=== PATIENT | female | born 1990 | race Hispanic/Latino ===

== ENCOUNTER 2017-06-26 19:16 | Day surgery (SDC) | payer MEDICAID ==
[2017-06-26] MEDS ORDERED: Metoclopramide HCl 10 MG/2 ML VIAL IVP PRN (20:20)
[2017-06-26] MEDS ORDERED: diphenhydrAMINE 50 MG/ML VIAL IVP PRN (20:21)
[2017-06-26 20:26] VITALS: BP 109/60; TEMP 99; BMI 29.5
[2017-06-26] MEDS ORDERED: Cyclobenzaprine 10 MG TAB PO SCH (20:30)
[2017-06-26] MEDS ORDERED: Lactated Ringer's 1,000 ML IV SCH (20:30)
--- NOTE | 2017-06-26 20:47 | PDOC.LDHP ---
Labor and Delivery H&P Chief complaint: other (headache, back pain, nausea) HPI: 26 y/o at 27w5d, patient of [facility] resident clinic in [place], presents with 2 day history of headache, nausea, and low back pain. Has only had sips of water and ice chips today due to lack of appetite. Denies vomiting, changes in bowel habits, dysuria or urgency. Denies VB, LOF, ctx, or decreased FM. ROS neg for HEENT, cv, pulm, gi, gu, neuro, psych, skin, musculoskeletal or constitutional symptoms other than mentioned above. OB History Details: 2 prior term SVDs, 1 prior at 34-35 weeks. Current complications: none Past Medical History: Intermittent asthma Current medications: pre-barber vitamins Previous surgical history: none Allergies/Adverse Reactions: Allergies Allergy/AdvReac Type Severity Reaction Status Date / Time penicillin G Allergy Severe Anaphylaxis Verified 06/26/17 20:17 tramadol Allergy Severe Anaphylaxis Verified 06/26/17 20:17 adhesive Allergy Intermediate Rash Verified 06/26/17 20:17 Social history: none - Physical Exam Vital signs reviewed and normal: yes General: NAD, resting Lungs: nonlabored breathing Abdomen: other (gravid, NTTP. Back with no CVA tenderness) Extremeties: no edema FHT: category 1 (155, mod variability, + accels, no decels) [address] contractions every: occasional - Vaginal Exam cm dilated: 0 (firm, posterior) Effacement: 0% Station: -3 - OB Labs Additional Labs: Laboratory Tests 06/26/17 20:49 Urine Color MARYAN Urine Clarity CLOUDY Urine pH 6.5 Ur Specific [place] 1.022 Urine Protein Trace Urine Glucose (UA) Negative Urine Ketones 40 H Urine Blood Negative Urine Nitrite Positive H Urine Bilirubin Negative Urine Urobilinogen 1.0 Ur Leukocyte Esterase Moderate H Urine RBC 0-3 Urine WBC 21-50 H Ur Squamous Epith Cells 0-3 Urine Bacteria 4+ H Hyaline Casts 0-3 HYALINE CAST - Assessment 26 y/o at 27w5d with migraine TORRES and UTI. Given IV fluids, reglan and benadryl with resolution of symptoms. status reassuring for EGA. - Plan -: Given Rx for Macrobid. D/c home with precautions. Advised to keep all appointments.
[2017-06-26 21:01] LABS: Bilirubin Negative (Negative); Blood, Urine Negative (Negative); Clarity CLOUDY (Clear); Glucose, Urine (Dipstick) Negative (Negative); Leukocyte Moderate (Negative); Nitrite Positive (Negative); Protein, Urine (Dipstick) Trace mg/dL (Neg-Trace); Specific Gravity, Urine 1.022 (1.002-1.036); pH, Urine 6.5 (5.0-9.0)
[2017-06-26 21:03] LABS: Bacteria/HPF 4+ HPF (None Seen); Pathc Cast-AUWi Flag 3.38 (0-2.49); RBC/HPF 0-3 HPF (0-3); Squamous Epithelial 0-3 HPF (0-3); WBC/HPF 21-50 HPF (0-3)
[2017-06-26 21:09] LABS: Hyaline Casts/LPF 0-3 HYALINE CAST LPF (0-3 Hyaline)
== END 2017-06-26 21:40 | disposition home or self-care (01) ==
LOC: SJX 19:16 → L&D/OP 21:40
PROVIDERS: ATTEND Obstetrics & Gynecology
DX: O99.89 Other specified diseases and conditions complicating pregnancy, childbirth and the puerperium (principal); G43.909 Migraine, unspecified, not intractable, without status migrainosus; O23.42 Unspecified infection of urinary tract in pregnancy, second trimester; N39.0 Urinary tract infection, site not specified; O99.52 Diseases of the respiratory system complicating childbirth; J45.20 Mild intermittent asthma, uncomplicated; Z88.0 Allergy status to penicillin; Z88.5 Allergy status to narcotic agent; Z91.048 Other nonmedicinal substance allergy status; Z79.899 Other long term (current) drug therapy; Z3A.27 27 weeks gestation of pregnancy
CPT/HCPCS: 81001; J1200; J2765